=== PATIENT | male | born 2005 | race Caucasian/White ===

== ENCOUNTER 2024-07-19 22:59 | Emergency (ER) | payer MEDICARE ==
[~2024-07-19] VITALS: Ht 162.6 cm; Wt 56.7 kg
[2024-07-20] MEDS ORDERED: ACETAMINOPHEN 500 MG TABLET ONE (00:22)
[2024-07-20] MEDS ORDERED: METOCLOPRAMIDE HCL 10 MG TABLET ONE (00:23)
[2024-07-20] MEDS: METOCLOPRAMIDE HCL 10 MG TABLET PO ONE (00:29)
[2024-07-20 00:30] VITALS: O2SAT 100
[2024-07-20] MEDS: ACETAMINOPHEN 500 MG TABLET PO ONE (00:30)
[2024-07-20] MEDS ORDERED: METO-543 PO (01:15)
== END 2024-07-20 01:30 | disposition home or self-care (01) ==
LOC: ER 23:02
DX: R51.9 Headache, unspecified (principal); R11.2 Nausea with vomiting, unspecified; I50.9 Heart failure, unspecified
CPT/HCPCS: 70450; A4606; A4663; A9150; J8597